=== PATIENT | female | born 1940 | race Caucasian/White ===

== ENCOUNTER → 2023-11-16 10:31 | Outpatient (REF) | payer MEDICARE, OTHER, SELFPAY ==
[2023-11-16 12:06] LABS: HDL Cholesterol 44 mg/dl; LDL Cholesterol, Calculated 88 mg/dl; Total Cholesterol 156 mg/dl (50-199); Triglyceride 124 mg/dl (10-149); Very Low Density Lipoprotein 24 mg/dl (0-30)
== END ==
LOC: OLABN 10:31
PROVIDERS: ATTENDING PHYSICIAN Student in an Organized Health Care Education/Training Program
DX: E78.5 Hyperlipidemia, unspecified (principal)
CPT/HCPCS: 36415; 80061

== ENCOUNTER → 2024-01-17 11:40 | Outpatient (REF) | payer MEDICARE, OTHER, SELFPAY ==
[2024-01-17 15:53] LABS: ALT (SGPT) 13 U/L (0-35); AST (SGOT) 30 U/L (14-36); Albumin 2.8 g/dl (3.5-5.0); Alkaline Phosphatase 242 U/L (38-126); Blood Urea Nitrogen 43 mg/dl (7-17); Calcium 9.3 mg/dl (8.4-10.2); Carbon Dioxide 26 mmol/L (22-30); Chloride 114 mmol/L (98-107); Glucose 110 mg/dl (70-99); Magnesium 2.7 mg/dl (1.6-2.3); Potassium 4.6 mmol/L (3.5-5.1); Sodium 148 mmol/L (135-145); Total Bilirubin 0.5 mg/dl (0.2-1.3); Total Protein 5.8 g/dl (6.3-8.2); eGFR 49.55
[2024-01-17 16:10] LABS: Vitamin D, 25-OH*** 54.8 ng/mL (30-80)
[2024-01-17 16:24] LABS: TSH 0.53 uIU/ml (0.47-4.68)
[2024-01-17 16:43] LABS: Vitamin B12 > 1000 pg/ml (239-931)
[2024-01-18 08:07] LABS: Glycohemoglobin (HgbA1c) 6.4 % (4.0-5.6)
== END ==
LOC: OLABN 11:40
PROVIDERS: ATTENDING PHYSICIAN Student in an Organized Health Care Education/Training Program
DX: D64.9 Anemia, unspecified (principal); E03.9 Hypothyroidism, unspecified; I10 Essential (primary) hypertension; E83.42 Hypomagnesemia; R73.09 Other abnormal glucose; G30.9 Alzheimer's disease, unspecified; E53.1 Pyridoxine deficiency; E55.9 Vitamin D deficiency, unspecified
CPT/HCPCS: 36415; 80053; 82306; 82607; 83036; 83735; 84207; 84443